=== PATIENT | female | born 1945 | race Caucasian/White ===

== ENCOUNTER → 2017-03-05 | Outpatient (CLI) | payer BC ==
[~2017-03-05] MED LIST: ACIDOPHILUS PO; ASPIRIN 81M81 MG/TA2 PO; AZO-CRANBERRY450 MG PO; CALCIUM500 MG PO; EPA/GLA1 SGL PO; EPA1000 MG PO; GLUCOSAMINE PO; GLUCOSAMINE500 M1 PO; HCTZ 25MG TAB25 MG PO; LUTEIN + KALE 11 CAP PO; MUCINEX D1 TER PO; MULTIPLE VITAMI1 CAP PO; NORCO 325 MG-51 TAB PO; NORCO 325 MG-7.1 TAB PO; PEPCID AC20 MG PO; PRAVACHOL10 MG PO; PREMARIN .3MG0.3 MG PO; PRIL40 PO; ROXICODONE 55 MG/TAB PO; VERAMYST27.5 MCG/A NS; VITAMIN C500 MG PO; VITAMIN D31000 I1 PO; ZYRTEC 10MG10 MG PO
== END ==
LOC: MC.RAD 11:17
DX: Z12.31 Encounter for screening mammogram for malignant neoplasm of breast (principal)

== ENCOUNTER → 2018-04-08 | Outpatient (CLI) | payer BC | LOC: MC.RAD 11:24 | DX: Z12.31 Encounter for screening mammogram for malignant neoplasm of breast (principal) ==

== ENCOUNTER 2018-12-26 09:51 | Emergency (ER) | payer BC ==
[~2018-12-26] VITALS: Ht 162.6 cm; Wt 109.1 kg
[2018-12-26 09:58] VITALS: TEMP 97.6
[2018-12-26 10:19] LABS: HEMATOCRIT 44.7 % (37.0-47.0); HEMOGLOBIN 14.8 g/dl (12.5-16.0); MEAN CELL VOLUME 86 fl (80.0-100.0); MEAN CORPUSCULAR HEMOGLOBIN 28 pg (27.0-31.0); MEAN CORPUSCULAR HGB CONC 33 g/dl (33.0-37.0); MEAN PLATELET VOLUME 10.9 fl (7.4-10.4); PLATELET COUNT 303 K/mm3 (130-400); RED BLOOD COUNT 5.23 M/mm3 (4.10-5.30); REDCELL DISTRIBUTION WIDTH-CV 14.3 % (11.5-14.5)
[2018-12-26] MEDS ORDERED: CALCIUM 600MG+D1 TAB PO (10:22)
[2018-12-26] MEDS ORDERED: GLUCOSAMINE 1000 (10:24)
[2018-12-26 10:34] LABS: ALBUMIN 4.4 gm/dL (3.5-5.0); BILIRUBIN,TOTAL 0.8 mg/dL (0.0-1.0); C-REACTIVE PROTEIN 3.3 mg/dL (0.0-0.9); CALCIUM 9.6 mg/dL (8.4-10.2); CREATININE, serum 0.61 mg/dL (0.52-1.25); POTASSIUM 3.3 mmol/L (3.4-5.0)
[2018-12-26 11:21] LABS: COLLECTION METHOD CLEAN CATCH
[2018-12-26 11:29] LABS: MUCOUS Present /lpf; PH 5 (5-8); SQUAMOUS EPITHELIAL 0-2 /hpf; URINE APPEARANCE Clear; URINE BACTERIA None Seen /hpf; URINE BILIRUBIN Negative (NEGATIVE); URINE BLOOD Negative (NEGATIVE); URINE COLOR Yellow; URINE GLUCOSE Negative (NEGATIVE); URINE KETONE Trace (NEGATIVE); URINE LEUKOCYTE ESTERASE Trace (NEGATIVE); URINE NITRATE Negative (NEGATIVE); URINE PROTEIN(semi-quant) Negative (NEGATIVE); URINE RBC 0-2 /hpf; URINE UROBILINOGEN Negative (NEGATIVE)
[2018-12-26 11:31] LABS: LYMPHOCYTE 4 % (20.0-51.0); NEUTROPHILS 95 % (42.0-75.2); PLATELET ESTIMATE INCREASED (NORMAL)
[2018-12-26] MEDS ORDERED: ZOFRAN ODT4 MG PO (13:30)
[2018-12-26 13:40] VITALS: BP 143/60; PULSE 83
== END 2018-12-26 14:09 | disposition home or self-care (01) ==
LOC: COL.ER 09:51
PROVIDERS: Family Medicine
DX: K52.9 Noninfective gastroenteritis and colitis, unspecified (principal); I10 Essential (primary) hypertension
CPT/HCPCS: J2405; J7030; Q9967

== ENCOUNTER → 2019-04-08 | Outpatient (CLI) | payer MEDICARE, BC ==
[~2019-04-08] MED LIST changes: +CALCIUM 600MG+D1 TAB PO; +GLUCOSAMINE 1000; +ZOFRAN ODT4 MG PO
== END ==
LOC: MC.RAD 09:22
DX: Z12.31 Encounter for screening mammogram for malignant neoplasm of breast (principal)

== ENCOUNTER → 2020-04-10 | Outpatient (CLI) | payer MEDICARE, BC | LOC: MC.RAD 10:02 | DX: Z12.31 Encounter for screening mammogram for malignant neoplasm of breast (principal) ==

== ENCOUNTER → 2020-11-09 | Outpatient (CLI) | payer MEDICARE, BC | LOC: COL.CARD 07:39 | DX: E87.70 Fluid overload, unspecified (principal) ==

== ENCOUNTER → 2020-11-16 | Outpatient (CLI) | payer MEDICARE, BC | LOC: COL.VAS 12:51 | DX: I08.0 Rheumatic disorders of both mitral and aortic valves (principal); E87.70 Fluid overload, unspecified ==

== ENCOUNTER → 2021-04-30 | Outpatient (CLI) | payer MEDICARE, BC | LOC: MC.RAD 14:45 | DX: Z12.31 Encounter for screening mammogram for malignant neoplasm of breast (principal) ==